=== PATIENT | female | born 1955 | race Caucasian/White ===

== ENCOUNTER 2022-11-16 14:12 | Emergency (ER) | payer MEDICARE, OTHER ==
[~2022-11-16] VITALS: Ht 165.1 cm; Wt 100.7 kg
== END 2022-11-16 16:08 | disposition home or self-care (01) ==
LOC: ED 14:12
DX: S29.011A Strain of muscle and tendon of front wall of thorax, initial encounter (principal); R91.1 Solitary pulmonary nodule; Z88.8 Allergy status to other drugs, medicaments and biological substances; W19.XXXA Unspecified fall, initial encounter; Y93.89 Activity, other specified; Y92.89 Other specified places as the place of occurrence of the external cause; Y99.8 Other external cause status

== ENCOUNTER 2023-02-15 13:39 | Emergency (ER) | payer MEDICARE, OTHER ==
[~2023-02-15] VITALS: Ht 162.5 cm; Wt 100.7 kg
== END 2023-02-15 16:33 | disposition home or self-care (01) ==
LOC: ED 13:39
DX: S63.91XA Sprain of unspecified part of right wrist and hand, initial encounter (principal); M19.041 Primary osteoarthritis, right hand; Z88.8 Allergy status to other drugs, medicaments and biological substances; W01.198A Fall on same level from slipping, tripping and stumbling with subsequent striking against other object, initial encounter; Y93.89 Activity, other specified; Y92.89 Other specified places as the place of occurrence of the external cause; Y99.8 Other external cause status